=== PATIENT | female | born 1990 | race Caucasian/White ===

== ENCOUNTER 2016-05-12 12:12 | Emergency (ER) | payer BC ==
--- NOTE | 2016-05-12 12:25 | ER Document Report ---
ED Medical Screen (RME) - General Stated Complaint: FALL/BACK AND RIGHT ANKLE PAIN Time seen by provider: 12:22 Mode of Arrival: Ambulatory Information source: Patient Notes: 26 yo female presents to ed for back pain and right ankle pain after falling off the porch last night. LMP 05/11/16 TRAVEL OUTSIDE OF THE [place] IN LAST 30 DAYS: No - HPI Onset: Yesterday Onset/Duration: Gradual Quality of pain: Achy Severity: Moderate Pain Level: 4 Associated Symptoms: Other - back and right ankle Exacerbated by: Coughing, Deep breathing Relieved by: Denies Similar symptoms previously: No Recently seen / treated by doctor: No - Related Data Smoking: Cigarettes - 1/2ppd Frequency of alcohol use: Rare Drug Abuse: None Allergies/Adverse Reactions: naproxen [Naproxen] Allergy (Intermediate, Verified 01/28/15 10:16) promethazine HCl [From Phenergan] Allergy (Mild, Verified 01/28/15 10:16) tramadol [Tramadol] Allergy (Mild, Verified 01/28/15 10:16) Past Medical History Pulmonary Medical History: Reports: Hx Pneumonia Endocrine Medical History: Reports: Hx Diabetes Mellitus Type 2 - gestational, diet controlled only Psychiatric Medical History: Reports: Hx Anxiety, Hx Depression Infectious Medical History: Reports: Hx MRSA Past Surgical History: Reports: Hx Oral Surgery - wisdom teeth - Immunizations Immunizations up to date: Yes Hx Diphtheria, Pertussis, Tetanus Vaccination: Yes - 2011 Physical Exam - Vital signs Vitals: Temp Pulse Resp BP Pulse Ox 97.9 F 105 H 20 132/92 H 97 05/12/16 12:18 05/12/16 12:18 05/12/16 12:18 05/12/16 12:18 05/12/16 12:18 Course - Vital Signs Vital signs: Temp Pulse Resp BP Pulse Ox 97.9 F 105 H 20 132/92 H 97 05/12/16 12:18 05/12/16 12:18 05/12/16 12:18 05/12/16 12:18 05/12/16 12:18
--- NOTE | 2016-05-12 14:44 | ER Document Report ---
ED Fall - General Chief Complaint: Fall Injury Stated Complaint: FALL/BACK AND RIGHT ANKLE PAIN Mode of Arrival: Ambulatory Information source: Patient Notes: 26 y/o F presents to ED c/o mid and lower back pain and right ankle pain s/p fall. Pt report was emptying a pot of food over her porch yesterday when she lost her balance and fell onto the ground on her back. States porch is approximately 3 ft off the ground. States did not strike head or lose consciousness. Reports did not have obvious injury initially after fall however states this morning noted pain to her back and ankle. Denies extremity weakness/ numbness/tingling, saddle numbness, incontinence or urinary retention, chest pain or sob. Also reports has had persistent cough and congestion over the last week. States family members at home with similar symptoms. Denies fever, n/v, or hemoptysis. TRAVEL OUTSIDE OF THE [place] IN LAST 30 DAYS: No - HPI Occurred: Yesterday Where: Outdoors Context: Lost balance Associated symptoms: None Location of injury/pain: Ankle, Back Quality of pain: Achy Severity: Moderate Pain Level: 3 - Related data Allergies/Adverse Reactions: naproxen [Naproxen] Allergy (Intermediate, Verified 01/28/15 10:16) promethazine HCl [From Phenergan] Allergy (Mild, Verified 01/28/15 10:16) tramadol [Tramadol] Allergy (Mild, Verified 01/28/15 10:16) Past Medical History - General Information source: Patient - Social History Smoking Status: Current Every Day Smoker Frequency of alcohol use: Rare Drug Abuse: None Lives with: Family Family History: DM, Hypertension, Thyroid Disfunction Patient has suicidal ideation: No Patient has homicidal ideation: No Pulmonary Medical History: Reports: Hx Pneumonia Endocrine Medical History: Reports: Hx Diabetes Mellitus Type 2 - gestational, diet controlled only Psychiatric Medical History: Reports: Hx Anxiety, Hx Depression Infectious Medical History: Reports: Hx MRSA Past Surgical History: Reports: Hx Oral Surgery - wisdom teeth - Immunizations Immunizations up to date: Yes Hx Diphtheria, Pertussis, Tetanus Vaccination: Yes - 2011 Review of Systems - Review of Systems Constitutional: No symptoms reported EENT: No symptoms reported Cardiovascular: No symptoms reported Respiratory: See HPI Gastrointestinal: No symptoms reported Genitourinary: No symptoms reported Female Genitourinary: No symptoms reported Musculoskeletal: See HPI Skin: No symptoms reported Hematologic/Lymphatic: No symptoms reported Neurological/Psychological: No symptoms reported -: Yes All other systems reviewed and negative Physical Exam - Vital signs Vitals: Temp Pulse Resp BP Pulse Ox 97.9 F 105 H 20 132/92 H 97 05/12/16 12:18 05/12/16 12:18 05/12/16 12:18 05/12/16 12:18 05/12/16 12:18 Interpretation: Normal - General General appearance: Appears well, Alert In distress: None - HEENT Head: Normocephalic, Atraumatic Eyes: Normal Conjunctiva: Normal Pupils: PERRL Ears: Normal External canal: Normal Tympanic membrane: Normal Sinus: Normal Nasal: Normal Mouth/Lips: Normal Mucous membranes: Normal, Moist Pharynx: Normal. No: Blood in hypopharynx, Erythema, Exudate, Peritonsillar abscess, Post nasal drainage, Retropharyngeal abscess, Tonsillar hypertrophy, Uvular edema, Potential airway comprom., Other Neck: Normal. No: Anterior cervical chain, Posterior cervical chain, Lymphadenopathy, Meningismus, Subcutaneous emphysema - Respiratory Respiratory status: No respiratory distress. No: Labored, Tachypnea Chest status: Nontender Breath sounds: Normal - CTAB, Nonproductive cough. No: Decreased air movement, Wheezing Chest palpation: Normal - Cardiovascular Rhythm: Regular Heart sounds: Normal auscultation Murmur: No Pulses: Normal: Radial, Posterior tibial, Dorsalis pedis Normal capillary refill: Yes - Abdominal Inspection: Normal Distension: No distension Bowel sounds: Normal Tenderness: Nontender Organomegaly: No organomegaly - Back Back: Tender - mild tenderness with palpation to bilateral paraspinal musculature at thoracic and lumbar levels. full ROM without paresthesias or neurological deficits.. No: Normal, Nontender, Deformity/step-off, CVA tenderness, Vertebra tenderness, Scars, Scoliosis, Wounds, Other - Extremities General upper extremity: Normal inspection, Nontender, Normal color, Normal ROM , Normal temperature General lower extremity: Normal inspection, Nontender, Normal color, Normal ROM , Normal temperature, Normal weight bearing. No: Supa's sign - Neurological Neuro grossly intact: Yes Cognition: Normal Orientation: AAOx4 Branford Coma Scale Eye Opening: Spontaneous Alanna Coma Scale Verbal: Oriented Branford Coma Scale Motor: Obeys Commands Branford Coma Scale Total: 15 Speech: Normal Cranial nerves: Normal Cerebellar coordination: Normal Motor strength normal: LUE, RUE, LLE, RLE Additional motor exam normals: Equal supervisor picking crew Sensory: Normal - Psychological Associated symptoms: Normal affect, Normal mood - Skin Skin Temperature: Warm Skin Moisture: Dry Skin Color: Normal Course - Re-evaluation Re-evalutation: 05/12/16 14:56 Pt hemodynamically stable, in no distress, afebrile. Xrays unremarkable. no suggestion of significant traumatic or infectious/inflammatory/vascular etiology to symptoms. Pt able to ambulate steadily and independently without paresthesias or neurological deficits. Pt appears stable for discharge and agrees with home care, follow-up with pcp, and ED return precautions. - Vital Signs Vital signs: Temp Pulse Resp BP Pulse Ox 98.1 F 93 16 130/94 H 99 05/12/16 14:57 05/12/16 14:57 05/12/16 14:57 05/12/16 14:57 05/12/16 14:57 - Diagnostic Test Radiology reviewed: Image reviewed, Reports reviewed Discharge - Discharge Clinical Impression: Fall Qualifiers: Encounter type: initial encounter Qualified Code(s): W19.XXXA - Unspecified fall, initial encounter URI (upper respiratory infection) Qualifiers: URI type: unspecified viral URI Qualified Code(s): J06.9 - Acute upper respiratory infection, unspecified Condition: Stable Disposition: HOME, SELF-CARE Additional Instructions: UPPER RESPIRATORY ILLNESS: You have a viral infection of the respiratory passages -- a "cold." This common infection causes nasal congestion, drainage, and often sore throat and cough. It is highly contagious. The disease usually lasts about 10 to 14 days. There is no "cure" for the viral infection -- it must run its course. If there is a complication, such as bacterial infection in the nose, sinuses, middle ear, or bronchial tubes, antibiotics may be required. The antibiotics won't affect the virus. Drink plenty of fluids. A humidifier may help. An expectorant medication or decongestant may make you more comfortable. Use acetaminophen or ibuprofen for fever or aches. See the doctor if fever persists over two days, if there is any significant worsening of your symptoms, or if you simply fail to improve as expected. BACK PAIN: Three out of every four people will have an episode of disabling back pain during their lifetime. Most commonly the pain is due to straining of the muscles and ligaments in the back. Usual treatment includes: (1) Rest on a firm surface. Avoid lying on your stomach. (2) Ice pack the painful area. After a few days, gentle heat may be used intermittently to relax the area, or ice packs can be continued. (3) Medication may be needed -- muscle relaxers and antiinflammatory medicines are commonly used. (4) As the back improves, exercises are prescribed to strengthen the back and abdominal muscles. Your doctor will advise you on the proper care for your back at each stage in your recovery. You may be better in a few days -- or healing may take several weeks. If new symptoms of a "herniated disc" (radiation of pain, numbness, or tingling down the back of the leg or weakness in the leg) occur, you should be re-examined. Further testing may be necessary. ICE PACKS: Apply ice packs frequently against the painful area. Many different schedules are recommended, such as "20 minutes on, 20 minutes off" or "one hour ice, two hours rest." If you need to work, you may need to go longer between ice treatments. You should plan to have the area ice packed AT LEAST one fourth of the time. The ice should be applied over the wrap, tape, or splint, or over a layer of cloth -- not directly against the skin. Some ice bags have a built-in cloth and can be put directly on the skin. WARM PACKS: After approximately two days, apply gentle heat (such as a heating pad or hot water bottle) for about 20 to 30 minutes about every two hours -- at least four times daily. Warmth and elevation will help you make a more rapid recovery , and will ease the pain considerably. Do not use HOT heat, and never apply heat for longer than 30 minutes. The continuous heat can invisibly damage skin and muscles -- even when no burn is seen on the surface. Damaged muscles can make you MORE sore. MUSCLE RELAXERS: Muscle relaxing medications are usually prescribed for acute muscle spasm or injury to the neck and back. They are often combined with antiinflammatory pain medication for increased relief. You may stop the muscle relaxer when the pain and stiffness have improved. Start the medication again if spasms recur. Muscle relaxers may cause drowsiness, especially with the first dose. Do not operate machinery or drive while under the effects of the medication. Most muscle relaxers last up to 24 hours. Do not combine the medication with alcohol. ORAL NARCOTIC MEDICATION: You have been given a prescription for pain control. This medication is a narcotic. It's best taken with food, as nausea can result if taken on an empty stomach. Don't operate machinery or drive within six hours of taking this medication. Do not combine this medicine with alcohol, or with any medication which can cause sedation (such as cold tablets or sleeping pills) unless you get permission from the physician. Narcotics tend to cause constipation. If possible, drink plenty of fluids and eat a diet high in fiber and fruits. SMOKING: If you smoke, you should stop smoking. The tar and chemicals in cigarette smoke are harmful. Smoking has been shown to cause: emphysema chronic bronchitis lung cancer mouth and throat cancer stomach and pancreas cancer premature aging defects In addition, smoking increases ear and lung infections in children of smokers. FOLLOW-UP CARE: Drink plenty of fluids, at least 2 to 3 liters of water per day. Follow-up with your primary care provider within the next week. Return to the Emergency Department for any worsening symptoms or concerns. Prescriptions: Methocarbamol [Robaxin 500 mg Tablet] 500 mg PO Q8HP PRN #10 tablet PRN Reason: Guaifenesin/D-Methorphan Hb [Guaifenesin-Dextromethorph Tab] 1 each PO Q12HP PRN #8 tab.sr.12h PRN Reason: Cough Hydrocodone/Acetaminophen [Ninole 5-325 mg Tablet] 1 tab PO Q6H PRN #8 tablet PRN Reason: Forms: Return to Work
[2016-05-12 15:22] VITALS: BP 130/94
== END 2016-05-12 14:57 | disposition home or self-care (01) ==
LOC: ER 12:12
DX: J06.9 Acute upper respiratory infection, unspecified (principal); M54.9 Dorsalgia, unspecified; M25.571 Pain in right ankle and joints of right foot; W19.XXXA Unspecified fall, initial encounter; R05 Cough; R09.81 Nasal congestion; F17.210 Nicotine dependence, cigarettes, uncomplicated
CPT/HCPCS: 72070; 72110; 99283

== ENCOUNTER 2016-08-02 09:27 | Emergency (ER) | payer BC ==
--- NOTE | 2016-08-02 10:35 | ER Document Report ---
HPI - HPI Patient complains to provider of: dysuria, hemorrhoid, bck pain (chronic) Onset: Yesterday Onset/Duration: Gradual Pain Level: 5 Context: 26 yo female c/o urethral pain with urination, frequency, hemorroid, and chronic low back pain, worse with movement. Had anal sex 1st time 2 nights ago, no bleeding. Partner did go into vagina afterwards. Associated Symptoms: None Exacerbated by: Other - urination Relieved by: Denies Similar symptoms previously: Yes Recently seen / treated by doctor: No - ROS ROS below otherwise negative: Yes Systems Reviewed and Negative: Yes All other systems reviewed and negative - REPRODUCTIVE Reproductive: DENIES: : - DERM Skin Color: Normal Past Medical History - General Information source: Patient - Social History Smoking Status: Current Every Day Smoker Chew tobacco use (# tins/day): No Frequency of alcohol use: None Drug Abuse: None Lives with: Spouse/Significant other Family History: DM, Hypertension, Thyroid Disfunction Patient has suicidal ideation: No Patient has homicidal ideation: No Pulmonary Medical History: Reports: Hx Pneumonia Endocrine Medical History: Reports: Hx Diabetes Mellitus Type 2 - gestational, diet controlled only Renal/ Medical History: Denies: Hx Peritoneal Dialysis Psychiatric Medical History: Reports: Hx Anxiety, Hx Depression Infectious Medical History: Reports: Hx MRSA Surgical Hx: Negative Past Surgical History: Reports: Hx Oral Surgery - wisdom teeth - Immunizations Immunizations up to date: Yes Hx Diphtheria, Pertussis, Tetanus Vaccination: Yes - 2011 Vertical Provider Document - CONSTITUTIONAL Agree With Documented VS: Yes Exam Limitations: No Limitations General Appearance: No Apparent Distress - INFECTION CONTROL TRAVEL OUTSIDE OF THE [place] IN LAST 30 DAYS: No - HEENT HEENT: Normal ENT Exam - NECK Neck: Supple - RESPIRATORY Respiratory: Breath Sounds Normal, No Respiratory Distress O2 Sat by Pulse Oximetry: 99 - CARDIOVASCULAR Cardiovascular: Regular Rate, Regular Rhythm - GI/ABDOMEN Gastrointestinal: Abdomen Soft, Abdomen Non-Tender, No Organomegaly - REPRODUCTIVE Notes: pt did not want me to examine the hemorroid - MUSCULOSKELETAL/EXTREMETIES Musculoskeletal/Extremeties: ORTEGA MEDEL - NEURO Level of Consciousness: Awake, Alert Motor/Sensory: No Motor Deficit, No Sensory Deficit - DERM Integumentary: Warm, Dry, No Rash Course - Re-evaluation Re-evalutation: 08/02/16 11:24 Urinalysis shows 16 WBCs, the urine culture is pending, the patient did not want me to examine her anus, and wants to use witch yisel pads. - Vital Signs Vital signs: Temp Pulse Resp BP Pulse Ox 98.1 F 84 20 123/80 99 08/02/16 09:32 08/02/16 09:32 08/02/16 09:32 08/02/16 09:32 08/02/16 09:32 Discharge - Discharge Clinical Impression: dysuria, low back pain, hemorrhoid by history Condition: Good Disposition: HOME, SELF-CARE Additional Instructions: Urine culture is pending If the hemorrhoid gets worse return for examination If you aren't going to continue having anal intercourse you should clear your rectum with enema prior to the sex, and male should use condom fo he won't get a UTI Please complete the patient satisfaction survey if you get one, and return it.. If you do not receive a survey, then you can go to the [facility] website, [email or web address] and place your comments about your very good care. Thank you very much. It was a pleasure being your medical provider today. Prescriptions: Nitrofurantoin/Nitrofuran Mac [Macrobid 100 mg Capsule] 100 mg PO BID #14 capsule Phenazopyridine HCl [Pyridium 100 Mg Tablet] 100 mg PO TIDP PRN #10 tablet PRN Reason:
[2016-08-02] MEDS ORDERED: PHENAZOPYRIDINE HCL 100 MG TABLET PO ONE (10:48)
[2016-08-02] MEDS ORDERED: ACETAMINOPHEN 325 MG TABLET PO ONE (10:48)
[2016-08-02] MEDS ORDERED: ONDANSETRON 4 MG TAB.RAPDIS PO ONE (10:48)
[2016-08-02 11:15] LABS: APPEARANCE,URINE CLEAR; BILIRUBIN,URINE NEGATIVE (NEGATIVE); GLUCOSE, URINE NEGATIVE (NEGATIVE); KETONES,URINE NEGATIVE (NEGATIVE); LEUKOCYTE ESTERASE,URINE TRACE (NEGATIVE); NITRITE,URINE NEGATIVE (NEGATIVE); PROTEIN,URINE NEGATIVE (NEGATIVE)
[2016-08-02 11:45] VITALS: BP 129/73
== END 2016-08-02 11:40 | disposition home or self-care (01) ==
LOC: ER 09:27
DX: R30.0 Dysuria (principal); M54.5 Low back pain; K64.9 Unspecified hemorrhoids; R35.0 Frequency of micturition; M54.9 Dorsalgia, unspecified; G89.29 Other chronic pain; F17.200 Nicotine dependence, unspecified, uncomplicated
CPT/HCPCS: 99283; 87086; 81025; 81001; S0119; J3490

== ENCOUNTER 2016-08-11 09:55 | Emergency (ER) | payer SELFPAY ==
[2016-08-11 10:21] LABS: APPEARANCE,URINE CLEAR; BILIRUBIN,URINE NEGATIVE (NEGATIVE); GLUCOSE, URINE NEGATIVE (NEGATIVE); KETONES,URINE NEGATIVE (NEGATIVE); LEUKOCYTE ESTERASE,URINE NEGATIVE (NEGATIVE); NITRITE,URINE NEGATIVE (NEGATIVE); PROTEIN,URINE NEGATIVE (NEGATIVE); URINE SPECIFIC GRAVITY 1.004; UROBILINOGEN,URINE NEGATIVE mg/dL (<2.0)
--- NOTE | 2016-08-11 10:59 | ER Document Report ---
ED GI/ - General Chief Complaint: Pain With Urination Stated Complaint: URINARY SYMPTOMS Time seen by provider: 10:00 Mode of Arrival: Ambulatory Information source: Patient Notes: 26-year-old female presents to ED for complaint of vaginal pain for and back pain for 2 weeks. She was seen 2 weeks ago for the same problem and was started on Anaprox and Azo which did not help. She states she continues to have the burning in her vagina and her back pain. States she has increased her fluids has been drinking cranberry juice and taking probiotics and nothing is helping. TRAVEL OUTSIDE OF THE [place] IN LAST 30 DAYS: No - HPI Patient complains to provider of: Flank pain, Vaginal pain Onset: Other Timing/Duration: Gradual - 2 weeks, Persistent Quality of pain: Burning, Sharp Severity at maximum: Moderate Severity in ED: Moderate Pain Level: 4 Location: Left flank, Right flank, Vaginal Vaginal bleeding (Compared to normal period): None Associated symptoms: Radiates to back Exacerbated by: Other - Urination Relieved by: Denies Similar symptoms previously: Yes Recently seen / treated by doctor: Yes - Related Data Allergies/Adverse Reactions: naproxen [Naproxen] Allergy (Intermediate, Verified 08/11/16 10:00) promethazine HCl [From Phenergan] Allergy (Mild, Verified 08/11/16 10:00) tramadol [Tramadol] Allergy (Mild, Verified 08/11/16 10:00) Home Medications: Current Home Medications Acetaminophen [Tylenol] 800 mg PO Q6HP PRN 08/11/16 [History] Alprazolam [Alprazolam Odt] 1 tab PO PRN PRN 08/11/16 [History] Ibuprofen [Motrin 800 mg Tablet] 800 mg PO Q8H PRN 08/11/16 [History] Vortioxetine Hydrobromide [Brintellix] 5 mg PO DAILY 08/11/16 [History] Zolpidem Tartrate [Ambien] 10 mg PO DAILY 08/11/16 [History] Past Medical History - General Information source: Patient - Social History Smoking Status: Never Smoker Chew tobacco use (# tins/day): No Frequency of alcohol use: None Drug Abuse: None Family History: DM, Hypertension, Thyroid Disfunction Patient has suicidal ideation: No Patient has homicidal ideation: No - Past Medical History Cardiac Medical History: Reports: None Pulmonary Medical History: Reports: Hx Pneumonia EENT Medical History: Reports: None Neurological Medical History: Reports: None Endocrine Medical History: Reports: None Renal/ Medical History: Reports: None Malignancy Medical History: Reports: None GI Medical History: Reports: None Musculoskeltal Medical History: Reports Hx Musculoskeletal Trauma Skin Medical History: Reports None Psychiatric Medical History: Reports: Hx Anxiety, Hx Depression Traumatic Medical History: Reports: None Infectious Medical History: Reports: Hx MRSA Past Surgical History: Reports: Hx Oral Surgery - wisdom teeth, Other - Cyst from face - Immunizations Immunizations up to date: Yes Hx Diphtheria, Pertussis, Tetanus Vaccination: Yes - 2011 Review of Systems - Review of Systems Constitutional: No symptoms reported EENT: No symptoms reported Cardiovascular: No symptoms reported Respiratory: No symptoms reported Gastrointestinal: No symptoms reported Genitourinary: Burning, Flank pain, Pain. denies: Hematuria, Incontinence Female Genitourinary: No symptoms reported Musculoskeletal: No symptoms reported Skin: No symptoms reported Hematologic/Lymphatic: No symptoms reported Neurological/Psychological: No symptoms reported -: Yes All other systems reviewed and negative Physical Exam - Vital signs Vitals: Temp Pulse Resp BP Pulse Ox 98.8 F 93 16 137/85 H 99 08/11/16 10:00 08/11/16 10:00 08/11/16 10:00 08/11/16 10:00 08/11/16 10:00 Interpretation: Normal - General General appearance: Appears well, Alert - HEENT Head: Normocephalic, Atraumatic Eyes: Normal Pupils: PERRL - Respiratory Respiratory status: No respiratory distress Chest status: Nontender Breath sounds: Normal Chest palpation: Normal - Cardiovascular Rhythm: Regular Heart sounds: Normal auscultation Murmur: No - Abdominal Inspection: Normal Distension: No distension Bowel sounds: Normal Tenderness: Nontender Organomegaly: No organomegaly - Back Back: Normal, Tender, CVA tenderness - bilateral. No: Deformity/step-off, Vertebra tenderness, Scars, Scoliosis, Wounds - Extremities General upper extremity: Normal inspection, Nontender, Normal color, Normal ROM , Normal temperature General lower extremity: Normal inspection, Nontender, Normal color, Normal ROM , Normal temperature, Normal weight bearing. No: Supa's sign - Neurological Neuro grossly intact: Yes Cognition: Normal Orientation: AAOx4 [place] Com[place] Scale Eye Opening: Spontaneous [place] Com[place] Scale Verbal: Oriented [place] Com[place] Scale Motor: Obeys Commands [place] Com[place] Scale Total: 15 Speech: Normal Motor strength normal: LUE, RUE, LLE, RLE Sensory: Normal - Psychological Associated symptoms: Normal affect, Normal mood - Skin Skin Temperature: Warm Skin Moisture: Dry Skin Color: Normal Course - Re-evaluation Re-evalutation: 08/11/16 11:46 Patient was diagnosed with bacterial vaginosis started on Flagyl. She also had flank pain so she was given a 6 pack of hydrocodone she was also told to please follow-up with her primary doctor. A list of local doctors and the [facility] given to the patient for follow-up. - Vital Signs Vital signs: Temp Pulse Resp BP Pulse Ox 98.8 F 93 16 137/85 H 99 08/11/16 10:00 08/11/16 10:00 08/11/16 10:00 08/11/16 10:00 08/11/16 10:00 Discharge - Discharge Clinical Impression: Flank pain, Bacterial vaginosis Condition: Stable Disposition: HOME, SELF-CARE Instructions: Family Physicians / Practices Additional Instructions: VAGINOSIS, BACTERIAL: Your exam shows you have bacterial vaginosis. This condition is due to an overgrowth of bacteria in the vagina. Symptoms may include vaginal itching or pain, a smelly discharge, and sometimes burning with urination. Normally this is not transmitted by sexual contact. Vaginosis can be treated with oral or topical antibiotics. Metronidazole ( Flagyl) pills are usually effective. Topical vaginal creams include Cleocin and Metro-Gel. You should avoid sexual contact until your symptoms are all better. Call the doctor if you develop pelvic pain, fever, or problems with urination, or if you don't improve as expected. Myalagia (Muscle Pain) Myalgia is pain in the muscles. We use the word myalgia to describe muscle pain where there's no history of injury, no known muscle disease, and the muscles are normal to examination. Myalgias can be a symptom of an acute illness , such as influenza, hepatitis, or any viral illness, especially with fever. Sometimes the muscle pain comes before any other symptoms. Myalgia can also be an early symptom of inflammatory muscle disease, such as lupus. If myalgia is accompanied by an acute illness that explains the muscle pain , then no further testing needs to be done. When there's no clear reason for the pain, tests may be done to see if there's an inflammatory or other disease of the muscles. The usual treatment for myalgias is anti-inflammatory medication, such as ibuprofen. Muscle aches may be soothed with a heating pad or hot compress. If muscles remain painful for more than a few days, you'll need testing and followup. Return if a muscle becomes swollen, red, or severely painful. Oral Narcotic Medication You have been given a dispense pack for pain control. This medication is a narcotic. It's best taken with food, as nausea can result if taken on an empty stomach. Don't operate machinery or drive within six hours of taking this medication. Do not combine this medicine with alcohol, or with any medication which can cause sedation (such as cold tablets or sleeping pills) unless you get permission from the physician. Narcotics tend to cause constipation. If possible, drink plenty of fluids and eat a diet high in fiber and fruits. METRONIDAZOLE: Metronidazole (Flagyl) has been prescribed. This medication is used to kill a type of bacteria called anaerobes, and protozoan parasites such as trichomonas and Giardia. Flagyl often causes a metallic taste in the mouth and mild nausea. Do not use alcohol in any form with Flagyl (including alcohol in medication elixirs). Flagyl interacts with alcohol to cause flushing, palpitations, headache, stomach cramps, and vomiting. Do not use Flagyl if you are taking Antabuse (disulfiram). Call the doctor at once if you develop rash, shortness of breath, itching, or lightheadedness. FOLLOW-UP CARE: If you have been referred to a physician for follow-up care, call the physician s office for an appointment as you were instructed or within the next two days. If you experience worsening or a significant change in your symptoms, notify the physician immediately or return to the Emergency Department at any time for re-evaluation. Prescriptions: Metronidazole [Flagyl 500 mg Tablet] 500 mg PO BID #14 tablet Referrals: [facility] [Provider Group] - Follow up as needed
[2016-08-11] MEDS ORDERED: METRONIDAZOLE 500 MG TABLET PO ONE (11:34)
[2016-08-11] MEDS ORDERED: HYDROCODONE/ACETAMINOPHEN 5-325 MG 6 TAB/DSPK PO PRN (11:35)
[2016-08-11 11:46] VITALS: BP 135/72
[2016-08-11 12:20] LABS: CHLAM PCR NOT DETECTED (NOT DETECT)
== END 2016-08-11 11:46 | disposition home or self-care (01) ==
LOC: ER 09:55
DX: N76.0 Acute vaginitis (principal); B96.89 Other specified bacterial agents as the cause of diseases classified elsewhere; Z88.8 Allergy status to other drugs, medicaments and biological substances; Z88.5 Allergy status to narcotic agent; Z86.14 Personal history of Methicillin resistant Staphylococcus aureus infection; M54.9 Dorsalgia, unspecified; R10.2 Pelvic and perineal pain
CPT/HCPCS: 81001; 81025; 87210; 87491; 87591; 99283

== ENCOUNTER 2016-08-28 12:58 | Emergency (ER) | payer SELFPAY ==
[2016-08-28] MEDS ORDERED: LIDOCAINE 1%/EPINEPHRINE INJ 20 ML VIAL INJ ONE (13:18)
[2016-08-28] MEDS ORDERED: LIDOCAINE 4%/TETRACAINE 0.5%/EPI 0.18% 5 ML TOPICAL SOLN TOP ONE (13:18)
[2016-08-28] MEDS ORDERED: DIPH/PERTUSS(ACELL)/TETANUS VAC/PF 0.5 ML SYR (>=10YO) IM ONE (13:34)
[2016-08-28] MEDS ORDERED: OXYCODONE-ACETAMINOPHEN 5-325 MG TABLET PO ONE (13:35)
--- NOTE | 2016-08-28 13:38 | ER Document Report ---
HPI - HPI Patient complains to provider of: cut scalp Onset: Just prior to arrival Onset/Duration: Sudden Pain Level: 3 Context: 26-year-old female got up suddenly and felt a little woozy ( which is normal for her) and fell back hitting her left scalp on a dresser cutting it. No loss of consciousness. No nausea or vomiting. Associated Symptoms: None Exacerbated by: Other - Touching the area Relieved by: Denies Similar symptoms previously: No Recently seen / treated by doctor: No - ROS ROS below otherwise negative: Yes Systems Reviewed and Negative: Yes All other systems reviewed and negative - REPRODUCTIVE Reproductive: DENIES: : - DERM Skin Color: Normal Past Medical History - General Information source: Patient - Social History Smoking Status: Never Smoker Frequency of alcohol use: None Drug Abuse: None Lives with: Spouse/Significant other Family History: DM, Hypertension, Thyroid Disfunction Patient has suicidal ideation: No Patient has homicidal ideation: No Pulmonary Medical History: Reports: Hx Pneumonia Endocrine Medical History: Reports: Hx Diabetes Mellitus Type 2 - gestational, diet controlled only Renal/ Medical History: Denies: Hx Peritoneal Dialysis Musculoskeltal Medical History: Reports Hx Musculoskeletal Trauma Psychiatric Medical History: Reports: Hx Anxiety, Hx Depression Infectious Medical History: Reports: Hx MRSA Past Surgical History: Reports: Hx Oral Surgery - wisdom teeth, Other - Cyst from face - Immunizations Immunizations up to date: Yes Hx Diphtheria, Pertussis, Tetanus Vaccination: Yes - 2012 Vertical Provider Document - CONSTITUTIONAL Agree With Documented VS: Yes Exam Limitations: No Limitations - INFECTION CONTROL TRAVEL OUTSIDE OF THE [place] IN LAST 30 DAYS: No - HEENT HEENT: Normocephalic. negative: Atraumatic - NECK Neck: Supple - Nontender C-spine - RESPIRATORY O2 Sat by Pulse Oximetry: 99 - NEURO Level of Consciousness: Awake, Alert, Appropriate - DERM Integumentary: Warm, Dry, Laceration - 2 cm cut superior mid left scalp Course - Re-evaluation Re-evalutation: 08/28/16 14:05 Tetanus is current so a she was not given the immunization - Vital Signs Vital signs: Temp Pulse Resp BP Pulse Ox 97.8 F 128 H 18 123/54 L 99 08/28/16 13:02 08/28/16 13:02 08/28/16 13:02 08/28/16 13:02 08/28/16 13:02 Procedures - Laceration/Wound Repair Head Time completed: 14:24 Wound length (cm): 2 Wound's Depth, Shape: Linear Laceration pre-procedure: Sterile drapes applied Anesthetic type: 1% Lidocaine w/epi Volume Anesthetic (mLs): 5 Wound explored: Clean Wound Repaired With: Navid Number of Sutures: 3 - navid Post-procedure NV exam normal: Yes Complications: No Discharge - Discharge Clinical Impression: scalp cut staple repair Condition: Good Disposition: HOME, SELF-CARE Instructions: Antibiotic Ointment Protection (REPLACED BY [facility]), Care of Stapled Wounds (REPLACED BY [facility] ), Acetaminophen Additional Instructions: Staple removal in 1 week Return to the emergency room any concerns tylenol for discomfort Please complete the patient satisfaction survey if you get one, and return it.. If you do not receive a survey, then you can go to the REPLACED BY [facility] website, [email or web address] and place your comments about your very good care. Thank you very much. It was a pleasure being your medical provider today.
[2016-08-28 14:48] VITALS: BP 129/83
== END 2016-08-28 14:46 | disposition home or self-care (01) ==
LOC: ER 12:58
PROC: 0HQ0XZZ Repair Scalp Skin, External Approach (ICD-10-PCS; principal; 2016-08-28)
DX: S01.01XA Laceration without foreign body of scalp, initial encounter (principal); R42 Dizziness and giddiness; W22.03XA Walked into furniture, initial encounter
CPT/HCPCS: 99282; 12001; J3490 ×2; 90715

== ENCOUNTER 2016-09-02 13:23 | Emergency (ER) | payer SELFPAY | END 2016-09-02 14:30 | disposition left against medical advice (07) | LOC: ER 13:23 | DX: Z53.21 Procedure and treatment not carried out due to patient leaving prior to being seen by health care provider (principal) ==

== ENCOUNTER 2016-09-04 13:56 | Emergency (ER) | payer SELFPAY ==
[2016-09-04 14:06] VITALS: BP 124/98
--- NOTE | 2016-09-04 14:34 | ER Document Report ---
ED Suture/Wound Recheck - General Chief Complaint: Staple Removal Stated Complaint: SUTURE REMOVAL Mode of Arrival: Ambulatory Information source: Patient TRAVEL OUTSIDE OF THE [place] IN LAST 30 DAYS: No - HPI Patient complains to provider of: staple removal Previous ED treatment: Laceration repair Notes: Patient was seen here a little over one week ago after falling and injuring her head. She had 3 navid placed in the left parietal scalp. She is here to have the navid removed. She states that the wound has healed well. There is been no fever or drainage. No redness. No nausea, vomiting, diarrhea. She complains of some mild soreness to the area but no significant pain. She has no other complaints at this time. - Related Data Allergies/Adverse Reactions: naproxen [Naproxen] Allergy (Intermediate, Verified 09/04/16 14:05) promethazine HCl [From Phenergan] Allergy (Mild, Verified 09/04/16 14:05) tramadol [Tramadol] Allergy (Mild, Verified 09/04/16 14:05) Past Medical History - Social History Smoking Status: Unknown if Ever Smoked Family History: Reviewed & Not Pertinent, DM, Hypertension, Thyroid Disfunction Patient has suicidal ideation: No Patient has homicidal ideation: No Pulmonary Medical History: Reports: Hx Pneumonia Endocrine Medical History: Reports: Hx Diabetes Mellitus Type 2 - gestational, diet controlled only Renal/ Medical History: Denies: Hx Peritoneal Dialysis Musculoskeltal Medical History: Reports Hx Musculoskeletal Trauma Psychiatric Medical History: Reports: Hx Anxiety, Hx Depression Infectious Medical History: Reports: Hx MRSA Past Surgical History: Reports: Hx Oral Surgery - wisdom teeth, Other - Cyst from face - Immunizations Immunizations up to date: Yes Hx Diphtheria, Pertussis, Tetanus Vaccination: Yes - 2011 Review of Systems - Review of Systems -: Yes All other systems reviewed and negative Physical Exam - Vital signs Vitals: Temp Pulse Resp BP Pulse Ox 99.0 F 87 16 124/98 H 97 09/04/16 14:06 09/04/16 14:06 09/04/16 14:06 09/04/16 14:06 09/04/16 14:06 - Notes Notes: GENERAL: alert, cooperative, nontoxic, no distress. HEAD: normocephalic. Healed laceration to the left parietal scalp. [address] There is no redness, drainage, significant tenderness to palpation. No fluctuance. No redness. Wound margins are well approximated. EYES: conjunctiva pink without discharge, no external redness or swelling. EARS: no external swelling, no external redness NOSE: atraumatic, no external swelling MOUTH/THROAT: mucous membranes moist and pink, posterior pharynx without erythema, swelling, exudate. No trismus or drooling. CHEST: no distress, lungs clear and equal throughout. No wheezing, rales, rhonchi. CARDIAC: regular rate and rhythm, no murmur, normal capillary refill, normal pulses. No peripheral edema noted. EXTREMITIES: full range of motion of all extremities. No redness, no swelling. NEURO: alert and oriented x 3, no focal deficits, full range of motion of all extremities. PYSCH: appropriate mood, affect. Patient is cooperative. SKIN: pink, warm, dry, no rash. Laceration to left parietal scalp. Course - Re-evaluation Re-evalutation: 09/04/16 14:32 Patient is nontoxic and stable vitals. The patient had navid placed in her left parietal scalp approximately 1 week ago. She is here to have the navid removed. She states that the wound has healed well. The wound has signs of good healing with approximated wound margins and no signs of infection. The navid were removed without difficulty. The patient will be discharged home with instructions to keep wound clean and dry, follow up for increased pain, fever, redness, drainage, and a further concerns. The patient is noted to have elevated blood pressure during today's emergency department visit. The patient was informed of this finding. The patient was instructed that this may be related to pre-hypertension and requires further evaluation with a primary care provider. The patient has no hypertensive symptoms at this time. The patient's emergency department workup and current diagnosis were explained to the patient and or family. Follow-up instructions were provided. Medications if prescribed were discussed. Instructions for when to return to the emergency department including specific worrisome symptoms were discussed with the patient and/or family. - Vital Signs Vital signs: Temp Pulse Resp BP Pulse Ox 99.0 F 87 16 124/98 H 97 09/04/16 14:06 09/04/16 14:06 09/04/16 14:06 09/04/16 14:06 09/04/16 14:06 Procedures - Additional Procedures staple removal Notes: 09/04/16 14:33 3 navid were removed from left parietal scalp using a staple remover. Wound is well healed. Patient tolerated the procedure well no immediate complications. Discharge - Discharge Clinical Impression: Removal of staple Condition: Stable Disposition: HOME, SELF-CARE Instructions: Staple Removal ([facility]) Additional Instructions: keep wounds clean and dry. Follow-up for increased pain, fever, redness, drainage, any further concerns. Your blood pressure was elevated during today's visit. Have this rechecked with your doctor. Forms: Elevated Blood Pressure
== END 2016-09-04 14:42 | disposition home or self-care (01) ==
LOC: ER 13:56
DX: Z48.02 Encounter for removal of sutures (principal); Z86.14 Personal history of Methicillin resistant Staphylococcus aureus infection

== ENCOUNTER 2016-11-10 11:53 | Emergency (ER) | payer SELFPAY ==
[2016-11-10] MEDS ORDERED: LIDOCAINE 5% (700 MG) TRANSDERMAL ADH..PATCH TP ONE (14:03)
--- NOTE | 2016-11-10 14:06 | ER Document Report ---
HPI - HPI Patient complains to provider of: eye drainage Onset: Yesterday Onset/Duration: Gradual Quality of pain: Achy Pain Level: 4 Context: Complains of right eye drainage and mildly blurred vision that started yesterday. Patient does not wear glasses or contact lenses. Patient is concerned about pinkeye. Associated Symptoms: Other - eye drainage Exacerbated by: Denies Relieved by: Denies Similar symptoms previously: Yes Recently seen / treated by doctor: No - ROS ROS below otherwise negative: Yes Systems Reviewed and Negative: Yes All other systems reviewed and negative - EENT EENT: REPORTS: Eye problems - CARDIOVASCULAR Cardiovascular: DENIES: Chest pain - REPRODUCTIVE LMP: 10/27/16 Reproductive: DENIES: : - DERM Skin Color: Normal Past Medical History - General Information source: Patient - Social History Smoking Status: Current Every Day Smoker Frequency of alcohol use: None Drug Abuse: None Occupation: [employer] Family History: Reviewed & Not Pertinent, DM, Hypertension, Thyroid Disfunction Patient has suicidal ideation: No Patient has homicidal ideation: No Pulmonary Medical History: Reports: Hx Pneumonia Endocrine Medical History: Reports: Hx Diabetes Mellitus Type 2 - gestational, diet controlled only Renal/ Medical History: Denies: Hx Peritoneal Dialysis Musculoskeltal Medical History: Reports Hx Musculoskeletal Trauma Psychiatric Medical History: Reports: Hx Anxiety, Hx Depression Infectious Medical History: Reports: Hx MRSA Past Surgical History: Reports: Hx Oral Surgery - wisdom teeth, Other - Cyst from face - Immunizations Immunizations up to date: Yes Hx Diphtheria, Pertussis, Tetanus Vaccination: Yes - 2011 Vertical Provider Document - CONSTITUTIONAL Agree With Documented VS: Yes Exam Limitations: No Limitations General Appearance: WD/WN, No Apparent Distress - INFECTION CONTROL TRAVEL OUTSIDE OF THE [place] IN LAST 30 DAYS: No - HEENT HEENT: Atraumatic, Normocephalic, PERRLA Notes: Extraocular movements intact, Perrl, no fluorescein uptake, no foreign body, no corneal abrasion, ulcer dendrite. Patient with mucoid drainage to right eye and sclera mildly injected. - NECK Neck: Normal Inspection, Supple - RESPIRATORY Respiratory: Breath Sounds Normal, No Respiratory Distress O2 Sat by Pulse Oximetry: 98 - CARDIOVASCULAR Cardiovascular: Regular Rate, Regular Rhythm, No Murmur - BACK Back: Abnormal Inspection - Paraspinal muscle tenderness, no midline tenderness , step-off or deformity. negative: CVA Tenderness-Right, CVA Tenderness-Left - MUSCULOSKELETAL/EXTREMETIES Musculoskeletal/Extremeties: LIZY FROM - NEURO Level of Consciousness: Awake, Alert, Appropriate Motor/Sensory: No Motor Deficit - DERM Integumentary: Warm, Dry, No Rash Course - Vital Signs Vital signs: Temp Pulse Resp BP Pulse Ox 98.7 F 83 14 138/81 H 98 11/10/16 11:56 11/10/16 11:56 11/10/16 11:56 11/10/16 11:56 11/10/16 11:56 Discharge - Discharge Clinical Impression: Conjunctivitis Qualifiers: Conjunctivitis type: acute Acute conjunctivitis type: unspecified Laterality: right Qualified Code(s): H10.31 - Unspecified acute conjunctivitis, right eye Upper back strain Qualifiers: Encounter type: initial encounter Qualified Code(s): S29.012A - Strain of muscle and tendon of back wall of thorax, initial encounter Condition: Stable Disposition: HOME, SELF-CARE Instructions: Eyedrop Use ([facility]), Conjunctivitis ([facility]), Upper Back Strain ([facility]) , Muscle Relaxers ([facility]) Additional Instructions: Return immediately for any new or worsening symptoms Followup with your primary care provider, call tomorrow to make a followup appointment Follow-up with drafter (cad) electrical for any continued pain or problems You may use [id number] lidocaine patches as directed to help with your back pain Prescriptions: Methocarbamol [Robaxin 500 Mg Tablet] 500 mg PO QID PRN #20 tablet PRN Reason: Polymyxin B Sulfate/Tmp [Polytrim Oph Soln 10 ml] 1 drop RT_EYE ASDIR #1 bottle Forms: Return to Work Referrals: [facility] [Provider Group] - Follow up as needed [facility] [place] [Provider Group] - Follow up as needed
[2016-11-10 14:24] VITALS: BP 129/83
== END 2016-11-10 14:20 | disposition home or self-care (01) ==
LOC: ER 11:53
DX: S29.012A Strain of muscle and tendon of back wall of thorax, initial encounter (principal); H10.31 Unspecified acute conjunctivitis, right eye; H53.8 Other visual disturbances; X58.XXXA Exposure to other specified factors, initial encounter; F17.200 Nicotine dependence, unspecified, uncomplicated
CPT/HCPCS: 99282

== ENCOUNTER 2016-12-22 14:01 | Emergency (ER) | payer BC ==
[2016-12-22] MEDS ORDERED: HYDROCODONE/ACETAMINOPHEN 5-325 MG TABLET PO ONE (15:02)
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
[2016-12-22 15:47] LABS: APPEARANCE,URINE SLIGHTLY-CLOUDY; BILIRUBIN,URINE NEGATIVE (NEGATIVE); GLUCOSE, URINE NEGATIVE (NEGATIVE); KETONES,URINE TRACE mg/dL (NEGATIVE); LEUKOCYTE ESTERASE,URINE NEGATIVE (NEGATIVE); NITRITE,URINE NEGATIVE (NEGATIVE); PROTEIN,URINE NEGATIVE (NEGATIVE); URINE SPECIFIC GRAVITY 1.028; UROBILINOGEN,URINE NEGATIVE mg/dL (<2.0)
[2016-12-22] MEDS ORDERED: IBUPROFEN 600 MG TABLET PO ONE (15:58)
[2016-12-22] MEDS ORDERED: OXYCODONE-ACETAMINOPHEN 5-325 MG TABLET PO ONE (17:02)
[2016-12-22 17:28] VITALS: BP 143/97
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
== END 2016-12-22 17:43 | disposition home or self-care (01) ==
LOC: ER 14:01
DX: S70.01XA Contusion of right hip, initial encounter (principal); S40.021A Contusion of right upper arm, initial encounter; S40.022A Contusion of left upper arm, initial encounter; X58.XXXA Exposure to other specified factors, initial encounter; M54.89 Other dorsalgia; M25.551 Pain in right hip; M54.2 Cervicalgia; M25.519 Pain in unspecified shoulder; R00.0 Tachycardia, unspecified; F17.200 Nicotine dependence, unspecified, uncomplicated; Z88.8 Allergy status to other drugs, medicaments and biological substances; Z88.5 Allergy status to narcotic agent
CPT/HCPCS: 70360; 72100; 81001; 99284

== ENCOUNTER 2017-03-20 15:54 | Emergency (ER) | payer BC ==
[2017-03-20 16:00] VITALS: BP 139/88
== END 2017-03-20 16:05 | disposition left against medical advice (07) ==
LOC: ER 15:54
DX: Z53.21 Procedure and treatment not carried out due to patient leaving prior to being seen by health care provider (principal)

== ENCOUNTER 2017-04-24 17:30 | Emergency (ER) | payer BC ==
[2017-04-24 17:35] VITALS: BP 125/80
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
== END 2017-04-24 18:23 | disposition home or self-care (01) ==
LOC: ER 17:30
DX: M54.41 Lumbago with sciatica, right side (principal); F17.210 Nicotine dependence, cigarettes, uncomplicated; Z71.6 Tobacco abuse counseling; Z79.899 Other long term (current) drug therapy; Z79.1 Long term (current) use of non-steroidal anti-inflammatories (NSAID); Z88.8 Allergy status to other drugs, medicaments and biological substances; Z88.5 Allergy status to narcotic agent; Z88.0 Allergy status to penicillin
CPT/HCPCS: 99283

== ENCOUNTER 2017-05-13 16:40 | Emergency (ER) | payer SELFPAY ==
[2017-05-13] MEDS ORDERED: DEXAMETHASONE 4 MG TABLET PO ONE (18:42)
[2017-05-13] MEDS ORDERED: HYDROCODONE/ACETAMINOPHEN 5-325 MG TABLET PO ONE (18:42)
[2017-05-13] MEDS ORDERED: LIDOCAINE 2% JELLY 5 ML TUBE TOP ONE (18:43)
[2017-05-13] MEDS ORDERED: CIPROFLOXACIN HCL/DEXAMETH OTIC DROP 7.5 ML AU SCH (18:45)
--- NOTE | 2017-05-13 18:47 | ER Document Report ---
ED General - General Chief Complaint: Ear Pain Stated Complaint: EAR ACHE Time Seen by Provider: 05/13/17 18:27 Notes: Patient is a 27-year-old female without past medical history who presents with 4 days of bilateral ear pain. Patient states she was seen at another emergency department, prescribed Ceftin ear and provided tetracaine drops but this has not improved her symptoms. She describes the pain in her bilateral ears as being severe, constant, throbbing pain. She notes that this has decreased her ability to hear particularly out of her left ear. Nothing worsens her symptoms. She denies any fever or constitutional symptoms. She does note that she has had some mild sinus congestion as well as sore throat. She has not followed up with her primary care doctor regarding today's concerns. She denies any headache, neck pain or altered mental status. No pain over the mastoids. TRAVEL OUTSIDE OF THE [place] IN LAST 30 DAYS: No - Related Data Allergies/Adverse Reactions: naproxen [Naproxen] Allergy (Intermediate, Verified 05/13/17 16:41) promethazine HCl [From Phenergan] Allergy (Mild, Verified 05/13/17 16:41) tramadol [Tramadol] Allergy (Mild, Verified 05/13/17 16:41) Penicillins Allergy (Verified 05/13/17 16:41) Past Medical History - General Information source: Patient - Social History Smoking Status: Never Smoker Frequency of alcohol use: None Drug Abuse: None Lives with: Spouse/Significant other Family History: DM, Hypertension, Thyroid Disfunction. denies: Arthritis, CAD, COPD, CVA, Hyperlipidemia, Malignancy Pulmonary Medical History: Reports: Hx Pneumonia Endocrine Medical History: Reports: Hx Diabetes Mellitus Type 2 - gestational, diet controlled only Renal/ Medical History: Denies: Hx Peritoneal Dialysis Musculoskeltal Medical History: Reports Hx Musculoskeletal Trauma Psychiatric Medical History: Reports: Hx Anxiety, Hx Depression Infectious Medical History: Reports: Hx MRSA Past Surgical History: Reports: Hx Oral Surgery - wisdom teeth, Other - Cyst from face - Immunizations Immunizations up to date: Yes Hx Diphtheria, Pertussis, Tetanus Vaccination: Yes - 2011 Review of Systems - Review of Systems Notes: Constitutional: Negative for fever. HENT: Positive for bilateral ear pain and sore throat Eyes: Negative for visual changes. Cardiovascular: Negative for chest pain. Respiratory: Negative for shortness of breath. Gastrointestinal: Negative for abdominal pain, vomiting or diarrhea. Genitourinary: Negative for dysuria. Musculoskeletal: Negative for back pain. Skin: Negative for rash. Neurological: Negative for headaches, weakness or numbness. 10 point ROS negative except as marked above and in HPI. Physical Exam - Vital signs Vitals: Temp Pulse Resp BP Pulse Ox 99.1 F 80 16 131/85 H 98 05/13/17 16:57 05/13/17 16:57 05/13/17 16:57 05/13/17 16:57 05/13/17 16:57 Interpretation: Normal Notes: PHYSICAL EXAMINATION: GENERAL: Well-appearing, well-nourished and in no acute distress. HEAD: Atraumatic, normocephalic. EYES: Pupils equal round and reactive to light, extraocular movements intact, sclera anicteric, conjunctiva are normal. ENT: Clear rhinorrhea, TMs are bulging bilaterally with a purulent effusion. There is also erythema in the external ear canal bilaterally worse on the left. NECK: Normal range of motion, bilateral cervical anterior lymphadenopathy that is tender and mobile on palpation LUNGS: Breath sounds clear to auscultation bilaterally and equal. No wheezes rales or rhonchi. HEART: Regular rate and rhythm without murmurs ABDOMEN: Soft, nontender, normoactive bowel sounds. No guarding, no rebound. No masses appreciated. EXTREMITIES: Normal range of motion, no pitting or edema. No cyanosis. NEUROLOGICAL: No focal neurological deficits. Moves all extremities spontaneously and on command. PSYCH: Normal mood, normal affect. SKIN: Warm, Dry, normal turgor, no rashes or lesions noted. Course - Re-evaluation Re-evalutation: 05/13/17 18:45 Patient presents with bilateral otitis media as well as otitis externa on the left complaining of worsening pain despite being on Cefdinir. Patient is overall nontoxic in appearance, vitals within normal limits, does not meet sepsis criteria. She appears in no distress. No pain on palpation of the mastoids bilaterally. I do not suspect an acute mastoiditis. Patient will be started on Ciprodex drops in addition to the Cefdinir she is already taking. I also given her dose of oral dexamethasone as well as sent her home with viscous lidocaine which can be applied to the ears. At this time will discharge with return precautions and follow-up recommendations. Verbal discharge instructions given a the bedside and opportunity for questions given. Medication warnings reviewed. Patient is in agreement with this plan and has verbalized understanding of return precautions and the need for primary care follow-up in the next 24-72 hours. 05/14/17 03:30 - Vital Signs Vital signs: Temp Pulse Resp BP Pulse Ox 98.8 F 97 18 122/82 98 05/13/17 19:09 05/13/17 19:09 05/13/17 19:09 05/13/17 19:09 05/13/17 19:09 Discharge - Discharge Clinical Impression: Bilateral otitis media Qualifiers: Otitis media type: suppurative Chronicity: acute Recurrence: not specified as recurrent Spontaneous tympanic membrane rupture: without spontaneous rupture Qualified Code(s): H66.003 - Acute suppurative otitis media without spontaneous rupture of ear drum, bilateral Otitis externa Qualifiers: Otitis externa type: other infective Chronicity: acute Laterality: left Qualified Code(s): H60.392 - Other infective otitis externa, left ear Condition: Good Disposition: HOME, SELF-CARE Additional Instructions: You were seen today for ear pain and have an acute ear infection. Please take the antibiotic that has been prescribed until it is completed even if you are feeling better before you have finished all the antibiotics. For your pain: Take ibuprofen 600 mg and acetaminophen 1000 mg every 6 hours together as needed for pain. Return if you have worsening of your pain, worsening facial pain, headaches, pass out, or any other symptoms that are worrisome to you.
[2017-05-13 19:13] VITALS: BP 122/82
== END 2017-05-13 19:09 | disposition home or self-care (01) ==
LOC: ER 16:40
DX: H66.003 Acute suppurative otitis media without spontaneous rupture of ear drum, bilateral (principal); H60.392 Other infective otitis externa, left ear; H92.03 Otalgia, bilateral; R09.81 Nasal congestion; J02.9 Acute pharyngitis, unspecified; Z88.8 Allergy status to other drugs, medicaments and biological substances; Z88.5 Allergy status to narcotic agent; Z88.0 Allergy status to penicillin; Z86.14 Personal history of Methicillin resistant Staphylococcus aureus infection; J34.89 Other specified disorders of nose and nasal sinuses; R59.0 Localized enlarged lymph nodes
CPT/HCPCS: 99282; J3490

== ENCOUNTER 2017-09-02 20:59 | Emergency (ER) | payer SELFPAY ==
[2017-09-02] MEDS ORDERED: NORMAL SALINE 1000 ML 1,000 ML IV ONE (22:42)
[2017-09-02] MEDS ORDERED: FENTANYL CITRATE INJ/PF 100 MCG/2 ML AMPUL IV ONE (23:25)
[2017-09-02] MEDS ORDERED: ONDANSETRON HCL INJ/PF 4 MG/2 ML SDV IV ONE (23:25)
[2017-09-02 23:32] LABS: ABSOLUTE BASOPHILS # (AUTO) 0.1 10^3/uL (0.0-0.2); ABSOLUTE EOSINOPHILS # (AUTO) 0.2 10^3/uL (0.0-0.6); ABSOLUTE LYMPHOCYTES (AUTO) 3.6 10^3/uL (0.5-4.7); ABSOLUTE MONOCYTES (AUTO) 0.9 10^3/uL (0.1-1.4); ABSOLUTE NEUT (AUTO) 7.1 10^3/uL (1.7-8.2); BASOPHILS % (AUTO) 0.7 % (0-2); EOSINOPHILS % (AUTO) 1.6 % (0-6); HEMATOCRIT 44.2 % (36.0-47.0); HEMOGLOBIN 15.2 g/dL (12.0-15.5); LYMPHOCYTES % (AUTO) 30.2 % (13-45); MEAN CORPUSCULAR HEMOGLOBIN 30.7 pg (27.0-33.4); MEAN CORPUSCULAR HGB CONC 34.4 g/dL (32.0-36.0); MEAN CORPUSCULAR VOLUME 89 fl (80-97); MONOCYTES % (AUTO) 7.3 % (3-13); PLATELET COUNT 319 10^3/uL (150-450); RED BLOOD COUNT 4.95 10^6/uL (3.72-5.28); RED CELL DISTRIBUTION WIDTH 12.8 % (11.5-14.0); SEGMENTED NEUTROPHILS % (AUTO) 60.2 % (42-78); TOTAL CELLS COUNTED % (AUTO) 100 %; WHITE BLOOD COUNT 11.8 10^3/uL (4.0-10.5)
[2017-09-02 23:37] LABS: ANION GAP 12 (5-19); BLOOD UREA NITROGEN 11 mg/dL (7-20); CALCIUM 10.4 mg/dL (8.4-10.2); CARBON DIOXIDE 28 mmol/L (22-30); CHLORIDE 103 mmol/L (98-107); GLUCOSE 115 mg/dL (75-110); POTASSIUM 4.8 mmol/L (3.6-5.0); SODIUM 142.9 mmol/L (137-145)
--- NOTE | 2017-09-02 23:53 | RADIOLOGY REPORT (SQ) ---
EXAM DESCRIPTION: CT HEAD WITHOUT CLINICAL HISTORY: 27 years Female, fall, injury COMPARISON: None. TECHNIQUE: No contrast. Coronal and sagittal reformat. This exam was performed according to our departmental dose-optimization program, which includes automated exposure control, adjustment of the mA and/or kV according to patient size and/or use of iterative reconstruction technique. FINDINGS: No hemorrhage or infarct. No mass, mass effect, or midline shift. Brain and extra-axial structures appear intact. IMPRESSION: Normal CT of the head.
--- NOTE | 2017-09-03 00:04 | RADIOLOGY REPORT (SQ) ---
EXAM DESCRIPTION: CT FACIAL AREA WITHOUT CLINICAL HISTORY: 27 years Female, fall, injury COMPARISON: None. TECHNIQUE: No contrast. Coronal and sagittal reformat. This exam was performed according to our departmental dose-optimization program, which includes automated exposure control, adjustment of the mA and/or kV according to patient size and/or use of iterative reconstruction technique. FINDINGS: Mucous occlusion of the right ostiomeatal unit. Facial bones including orbits, nasal bone, paranasal sinuses, and pterygoid plates appear otherwise intact. Patent left ostiomeatal unit. Unremarkable partially visualized inferior cranium, temporal bone, and upper neck. IMPRESSION: No acute findings.
--- NOTE | 2017-09-03 00:10 | ER Document Report ---
ED Head/Face/Scalp Injury - General Mode of Arrival: Ambulatory Information source: Patient TRAVEL OUTSIDE OF THE [place] IN LAST 30 DAYS: No <HAN TIAN - Last Filed: 09/03/17 00:43> <JOLLY SAAVEDRA - Last Filed: 09/03/17 03:42> - General Chief Complaint: Facial Injury Stated Complaint: NOSE INJURY Time Seen by Provider: 09/02/17 22:41 Notes: Patient is a 27 year old female that presents to the emergency department today with complaints of a fall that occurred prior to arrival. Patient states that she slipped on water around her dogs water bowl. Patient states her face hit her island counter and then she fell backwards hitting the back of her head on the floor. Patient states she has slight left sided neck pain. (HAN TIAN) - Related Data Allergies/Adverse Reactions: naproxen [Naproxen] Allergy (Intermediate, Verified 05/13/17 16:41) promethazine HCl [From Phenergan] Allergy (Mild, Verified 05/13/17 16:41) tramadol [Tramadol] Allergy (Mild, Verified 05/13/17 16:41) Penicillins Allergy (Verified 05/13/17 16:41) Past Medical History - General Information source: Patient - Social History Smoking Status: Current Every Day Smoker Cigarette use (# per day): Yes Frequency of alcohol use: None Drug Abuse: None Family History: DM, Hypertension, Thyroid Disfunction Patient has suicidal ideation: No Patient has homicidal ideation: No Pulmonary Medical History: Reports: Hx Pneumonia Endocrine Medical History: Reports: Hx Diabetes Mellitus Type 2 - gestational, diet controlled only Musculoskeltal Medical History: Reports Hx Musculoskeletal Trauma Psychiatric Medical History: Reports: Hx Anxiety, Hx Depression Infectious Medical History: Reports: Hx MRSA Past Surgical History: Reports: Hx Oral Surgery - wisdom teeth, Other - Cyst from face - Immunizations Immunizations up to date: Yes Hx Diphtheria, Pertussis, Tetanus Vaccination: Yes - 2011 <HAN TIAN - Last Filed: 09/03/17 00:43> Review of Systems - Review of Systems Constitutional: No symptoms reported EENT: See HPI, Other - facial pain Cardiovascular: See HPI, Lightheaded Respiratory: No symptoms reported Gastrointestinal: No symptoms reported Genitourinary: No symptoms reported Female Genitourinary: No symptoms reported Musculoskeletal: See HPI, Neck pain Skin: No symptoms reported Hematologic/Lymphatic: No symptoms reported Neurological/Psychological: No symptoms reported -: Yes All other systems reviewed and negative <HAN TIAN - Last Filed: 09/03/17 00:43> Physical Exam - Vital signs Interpretation: Tachycardic - General General appearance: Alert In distress: Mild - HEENT Head: Normocephalic, Other - Contusion to left face over maxilla with small superficial laceration 1 cm lateral to left nare Nasal: Bloody discharge - L Mouth/Lips: Other - Tender over philtrum. Dentition intact Mucous membranes: Moist Pharynx: Normal Neck: Normal - Respiratory Respiratory status: No respiratory distress Chest status: Nontender Breath sounds: Normal Chest palpation: Normal <JOLLY SAAVEDRA - Last Filed: 09/03/17 03:42> - Vital signs Vitals: Temp Pulse Resp BP Pulse Ox 98.2 F 110 H 22 H 142/98 H 99 09/02/17 21:10 09/02/17 21:10 09/02/17 21:10 09/02/17 21:10 09/02/17 21:10 Course - Laboratory Result Diagrams: 09/02/17 23:07 09/02/17 23:07 <HAN TIAN - Last Filed: 09/03/17 00:43> - Laboratory Result Diagrams: 09/02/17 23:07 09/02/17 23:07 <JOLLY SAAVEDRA - Last Filed: 09/03/17 03:42> - Re-evaluation Re-evalutation: 09/03/17 03:39 Patient with no evidence for fracture on facial fracture. CT head within normal limits. Blood work within normal limits. Tetanus is up-to-date. Wound has been clean. Patient will be discharged home with pain medications. Return if any worsening or concerning symptoms. No other injuries. Stable for discharge. (JOLLY SAAVEDRA) - Vital Signs Vital signs: Temp Pulse Resp BP Pulse Ox 98.0 F 62 18 123/79 99 09/03/17 00:47 09/03/17 00:47 09/03/17 00:47 09/03/17 00:47 09/03/17 00:47 - Laboratory Laboratory results interpreted by me: 09/02/17 09/02/17 23:07 23:07 WBC 11.8 H Creatinine 0.47 L Glucose 115 H Calcium 10.4 H Discharge <HAN TIAN - Last Filed: 09/03/17 00:43> <JOLLY SAAVEDRA - Last Filed: 09/03/17 03:42> - Discharge Clinical Impression: Facial contusion Qualifiers: Encounter type: initial encounter Qualified Code(s): S00.83XA - Contusion of other part of head, initial encounter Facial abrasion Qualifiers: Encounter type: initial encounter Qualified Code(s): S00.81XA - Abrasion of other part of head, initial encounter Condition: Stable Disposition: HOME, SELF-CARE Instructions: Contusion ([facility]), Head Injury Precautions ([facility]) Prescriptions: Hydrocodone/Acetaminophen [[place] 5-325 mg Tablet] 1 tab PO TIDP PRN #20 tablet PRN Reason: Naproxen [Naprosyn 250 mg Tablet] 250 mg PO DAILY PRN #14 tablet PRN Reason: Scribe Attestation: 09/03/17 03:41 I personally performed the services described in the documentation, reviewed and edited the documentation which was dictated to the scribe in my presence, and it accurately records my words and actions. (JOLLY SAAVEDRA) Scribe Documentation - Scribe Written by Scribe:: Susanna Ron, 09/03/2017 0054 acting as scribe for :: Samson <HAN TIAN - Last Filed: 09/03/17 00:43>
[2017-09-03] MEDS ORDERED: HYDROCODONE/ACETAMINOPHEN 5-325 MG (6 TAB/ER DISP) PO PRN (00:22)
[2017-09-03] MEDS ORDERED: ONDANSETRON ODT 4 MG TAB (6 TAB/ER DISP) PO PRN (00:22)
[2017-09-03 00:48] VITALS: BP 123/79
== END 2017-09-03 00:47 | disposition home or self-care (01) ==
LOC: ER 20:59
DX: S01.21XA Laceration without foreign body of nose, initial encounter (principal); M54.2 Cervicalgia; R51 Headache; W01.198A Fall on same level from slipping, tripping and stumbling with subsequent striking against other object, initial encounter; Y93.89 Activity, other specified; R42 Dizziness and giddiness; F17.210 Nicotine dependence, cigarettes, uncomplicated; Z88.8 Allergy status to other drugs, medicaments and biological substances; Z88.5 Allergy status to narcotic agent; Z88.0 Allergy status to penicillin
CPT/HCPCS: 99284; 96361; 96374; 96375; 36415; 84702; 85025; 80048; 70450; 70486; J3010; J2405; J7030

== ENCOUNTER 2019-05-06 03:59 | Emergency (ER) | payer SELFPAY ==
[2019-05-06 04:24] VITALS: BP 120/83
[2019-05-06] MEDS ORDERED: ONDANSETRON 4 MG TAB.RAPDIS PO ONE (07:19)
[2019-05-06] MEDS ORDERED: LORAZEPAM 1 MG TABLET PO ONE (07:19)
[2019-05-06 07:30] LABS: ABSOLUTE BASOPHILS # (AUTO) 0.1 10^3/uL (0.0-0.2); ABSOLUTE LYMPHOCYTES (AUTO) 2.5 10^3/uL (0.5-4.7); ABSOLUTE MONOCYTES (AUTO) 0.6 10^3/uL (0.1-1.4); ABSOLUTE NEUT (AUTO) 7.7 10^3/uL (1.7-8.2); BASOPHILS % (AUTO) 0.5 % (0-2); EOSINOPHILS % (AUTO) 0.3 % (0-6); HEMATOCRIT 47.3 % (36.0-47.0); HEMOGLOBIN 15.9 g/dL (12.0-15.5); MEAN CORPUSCULAR HEMOGLOBIN 30.4 pg (27.0-33.4); MEAN CORPUSCULAR HGB CONC 33.6 g/dL (32.0-36.0); MEAN CORPUSCULAR VOLUME 91 fl (80-97); MONOCYTES % (AUTO) 5.4 % (3-13); PLATELET COUNT 367 10^3/uL (150-450); RED BLOOD COUNT 5.23 10^6/uL (3.72-5.28); RED CELL DISTRIBUTION WIDTH 12.7 % (11.5-14.0); SEGMENTED NEUTROPHILS % (AUTO) 70.8 % (42-78); TOTAL CELLS COUNTED % (AUTO) 100 %
[2019-05-06 07:49] LABS: APPEARANCE,URINE CLEAR; BILIRUBIN,URINE NEGATIVE (NEGATIVE); GLUCOSE, URINE NEGATIVE (NEGATIVE); KETONES,URINE TRACE mg/dL (NEGATIVE); LEUKOCYTE ESTERASE,URINE NEGATIVE (NEGATIVE); NITRITE,URINE NEGATIVE (NEGATIVE); PROTEIN,URINE 100 mg/dL (NEGATIVE)
[2019-05-06 07:51] LABS: COLOR,URINE YELLOW
[2019-05-06 07:52] LABS: ALBUMIN 4.8 g/dL (3.5-5.0); ALKALINE PHOSPHATASE 66 U/L (38-126); ANION GAP 12 (5-19); ASPARTATE AMINO TRANSFERASE 30 U/L (14-36); BILIRUBIN,DIRECT 0.3 mg/dL (0.0-0.4); BILIRUBIN,TOTAL 0.5 mg/dL (0.2-1.3); BLOOD UREA NITROGEN 12 mg/dL (7-20); CALCIUM 10.3 mg/dL (8.4-10.2); CARBON DIOXIDE 22 mmol/L (22-30); CHLORIDE 107 mmol/L (98-107); GLUCOSE 125 mg/dL (75-110); POTASSIUM 4.3 mmol/L (3.6-5.0); SALICYLATE 2.1 mg/dL (2.0-20.0); TOTAL PROTEIN 7.7 g/dL (6.3-8.2)
[2019-05-06 07:53] LABS: ACETAMINOPHEN < 10 ug/mL (10-30); ALCOHOL < 10 mg/dL (NONE DETECTED)
[2019-05-06 08:07] LABS: URINE AMPHETAMINES SCREEN NEGATIVE; URINE BARBITURATES SCREEN NEGATIVE; URINE BENZODIAZEPINES SCREEN NEGATIVE; URINE COCAINE SCREEN NEGATIVE; URINE MARIJUANA (THC) SCREEN NEGATIVE; URINE METHADONE SCREEN NEGATIVE; URINE PHENCYCLIDINE SCREEN NEGATIVE
--- NOTE | 2019-05-06 08:25 | ER Document Report ---
ED General - General Chief Complaint: Drug Abuse Stated Complaint: HAVING WITHDRAWS/FEVER/VOMITING Time Seen by Provider: 05/06/19 07:07 Primary Care Provider: HUBERT SALOMON MD [Primary Care Provider] - Follow up as needed TRAVEL OUTSIDE OF THE [place] IN LAST 30 DAYS: No - HPI Notes: Patient presents for concern of opioid withdrawal. She states that she takes over 100 mg some days of Vicodin and oxycodone. Does not have any other drug abuse. States that she is feeling itchy and nauseous. Otherwise states no known other medical problems and is seeking help with opioid withdrawal. Denies any suicidal homicidal ideations at this time. - Related Data Allergies/Adverse Reactions: naproxen [Naproxen] Allergy (Intermediate, Verified 05/13/17 16:41) promethazine HCl [From Phenergan] Allergy (Mild, Verified 05/13/17 16:41) tramadol [Tramadol] Allergy (Mild, Verified 05/13/17 16:41) Penicillins Allergy (Verified 05/13/17 16:41) Home Medications: vicodin Past Medical History - Social History Smoking Status: Current Every Day Smoker Chew tobacco use (# tins/day): No Frequency of alcohol use: None Drug Abuse: Prescription drugs Family History: DM, Hypertension, Thyroid Disfunction Patient has suicidal ideation: No Patient has homicidal ideation: No Pulmonary Medical History: Reports: Hx Pneumonia Endocrine Medical History: Reports: Hx Diabetes Mellitus Type 2 - gestational, diet controlled only Renal/ Medical History: Denies: Hx Peritoneal Dialysis Musculoskeletal Medical History: Reports Hx Musculoskeletal Trauma Psychiatric Medical History: Reports: Hx Anxiety, Hx Depression Infectious Medical History: Reports: Hx MRSA Past Surgical History: Reports: Hx Oral Surgery - wisdom teeth, Other - Cyst from face - Immunizations Immunizations up to date: Yes Hx Diphtheria, Pertussis, Tetanus Vaccination: Yes - 2011 Review of Systems - Review of Systems Constitutional: No symptoms reported EENT: No symptoms reported Cardiovascular: No symptoms reported Respiratory: No symptoms reported Gastrointestinal: No symptoms reported Genitourinary: No symptoms reported Female Genitourinary: No symptoms reported Musculoskeletal: No symptoms reported Skin: No symptoms reported Hematologic/Lymphatic: No symptoms reported Neurological/Psychological: See HPI Physical Exam - Vital signs Vitals: Temp Pulse Resp BP Pulse Ox 97.9 F 77 20 120/83 98 05/06/19 04:16 05/06/19 04:16 05/06/19 04:16 05/06/19 04:16 05/06/19 04:16 - General General appearance: Appears well, Alert - HEENT Head: Normocephalic, Atraumatic - Respiratory Respiratory status: No respiratory distress - Cardiovascular Rhythm: Regular Heart sounds: Normal auscultation Murmur: No - Abdominal Inspection: Normal Distension: No distension Bowel sounds: Normal - Neurological Neuro grossly intact: Yes Cognition: Normal Orientation: AAOx4 - Psychological Associated symptoms: Normal affect Course - Re-evaluation Re-evalutation: 05/06/19 08:25 Will be evaluated by psychiatric services to help with opioid withdrawal outpatient referral. 05/06/19 08:31 Patient medically cleared 05/06/19 08:58 Patient was to leave AMA. Discussed with her that we are getting give her o utpatient follow-up as well as to see if she could find an outpatient doctor provide her Suboxone to help withdrawal from her opioid addiction. She states that she is tired of waiting will visit her primary care physician. She continues to deny any suicidal homicidal ideation at this time. She was advised to come back to the emergency department for any concerns or she decides to change her mind. 05/06/19 08:58 After performing a Medical Screening Examination, I spoke with the patient at length in regards to leaving the hospital against medical advice. I do not believe the patient should leave but the patient is alert oriented x4, understands the risks and benefits of staying and leaving including disability and . Pt understands that he can return at any time for further care and is more than welcome to do so. Pt verbalizes this understanding. - Vital Signs Vital signs: Temp Pulse Resp BP Pulse Ox 97.9 F 77 20 120/83 98 05/06/19 04:16 05/06/19 04:16 05/06/19 04:16 05/06/19 04:16 05/06/19 04:16 - Laboratory Result Diagrams: 05/06/19 05:50 05/06/19 05:50 Laboratory results interpreted by me: 05/06/19 05/06/19 05/06/19 05:50 05:50 07:35 WBC 11.0 H Hgb 15.9 H Hct 47.3 H Creatinine 0.45 L Glucose 125 H Calcium 10.3 H Urine Protein 100 H Urine Ketones TRACE H Urine Urobilinogen 2.0 H Acetaminophen < 10 L Discharge - Discharge Clinical Impression: Opioid dependence Qualifiers: Substance use status: uncomplicated Qualified Code(s): F11.20 - Opioid dependence, uncomplicated Condition: Good Disposition: AGAINST MEDICAL ADVICE Referrals: HUBERT SALOMON MD [Primary Care Provider] - Follow up as needed
--- NOTE | 2019-05-06 13:21 | EKG REPORT ---
SEVERITY:- BORDERLINE ECG - SINUS RHYTHM INFERIOR Q WAVES, PROBABLY NORMAL VARIATION : Confirmed by: Cruz Almonte MD 06-May-2019 13:20:27
--- NOTE | 2019-05-06 16:29 | PSYCHOLOGICAL NOTE ---
Psych Note - Psych Note Date seen by psych provider: 05/06/19 Time seen by psych provider: 07:30 Psych Note: Patient complains of "being irritated, anxious, and aching all over." Clinician used Rogerian techniques to describe the effects of opioid withdrawal. Patient s edelmira she has been using 100MG of Percocet and Vicodin per day. Patient denied suicidal and homicidal ideations. Patient denies previous mental health concerns. Patient complain of not being prescribed anything for withdrawal symptoms. Per nurse, patient was provided with Ativan. Patient requested Suboxone or Subutex. Patient was informed she could not be given a prescription for Suboxone or Subutex at this ED. Patient states she wants help. Clinician contacted [facility] for an intake appointment. While on the phone with [facility], clinician was informed patient wanted to leave. Patient was provided with a substance abuse treatment resource list and the available times for an intake at [facility]. Patient left AMA.
== END 2019-05-06 09:04 | disposition left against medical advice (07) ==
LOC: ER 03:59
DX: F11.20 Opioid dependence, uncomplicated (principal); R11.0 Nausea; L29.9 Pruritus, unspecified; F17.200 Nicotine dependence, unspecified, uncomplicated; Z88.8 Allergy status to other drugs, medicaments and biological substances; Z88.6 Allergy status to analgesic agent; Z88.0 Allergy status to penicillin; Z53.29 Procedure and treatment not carried out because of patient's decision for other reasons
CPT/HCPCS: 93005; 99285; 36415; 80307 ×4; 84703; 85025; 80053; 81001; 93010; S0119

== ENCOUNTER → 2019-11-12 | Outpatient (CLI) | payer BC ==
--- NOTE | 2019-11-12 18:07 | EKG REPORT ---
SEVERITY:- NORMAL ECG - SINUS RHYTHM : Confirmed by: Cruz Almonte MD 12-Nov-2019 18:07:12
== END ==
LOC: RT 10:34
PROVIDERS: ATTEND Obstetrics & Gynecology
DX: O24.111 Pre-existing type 2 diabetes mellitus, in pregnancy, first trimester (principal)
CPT/HCPCS: 93005; 93010